=== PATIENT | female | born 1995 | race Hispanic/Latino ===

== ENCOUNTER → 2020-05-06 | Outpatient (REF) | payer OTHER | LOC: M SFHCLUC 11:03 | PROVIDERS: ATTEND Physician Assistant | DX: R30.0 Dysuria (principal) ==

== ENCOUNTER → 2020-08-06 | Outpatient (REF) | payer OTHER ==
[2020-08-06 17:50] LABS: BASO # 0.1 10^3/uL (0.0-0.2); BASO % 0.4 % (0.0-1.0); EOS # 0.5 10^3/uL (0.0-0.5); EOS % 3.4 % (0.0-3.0); HEMOGLOBIN 13.7 g/dl (12.0-15.5); LYMPH # 3.3 10^3/uL (1.5-5.0); LYMPH % 24.6 % (24.0-44.0); MEAN CORPUSCULAR HEMOGLOBIN 29.5 pg (27.0-33.0); MEAN CORPUSCULAR HGB CONC 32.6 g/dl (32.0-36.5); MEAN CORPUSCULAR VOLUME 90.5 fl (80.0-96.0); MONO # 0.8 10^3/uL (0.0-0.8); MONO % 5.7 % (0.0-5.0); NEUTROPHILS # 8.7 10^3/uL (1.5-8.5); NEUTROPHILS % 65.4 % (36.0-66.0); PLATELET COUNT, AUTOMATED 340 10^3/uL (150-450); RED BLOOD COUNT 4.64 10^6/uL (4.00-5.40); WHITE BLOOD COUNT 13.3 10^3/uL (4.0-10.0)
[2020-08-06 18:20] LABS: ALBUMIN 3.9 GM/DL (3.2-5.2); ALT/SGPT 47 U/L (12-78); BILIRUBIN,TOTAL 0.2 MG/DL (0.2-1.0); BLOOD UREA NITROGEN 9 MG/DL (7-18); CALCIUM LEVEL 9.3 MG/DL (8.5-10.1); CARBON DIOXIDE LEVEL 29 MEQ/L (21-32); CHLORIDE LEVEL 104 MEQ/L (98-107); CHOLESTEROL LEVEL 168 MG/DL (<200); CHOLESTEROL RISK RATIO 3.574 (<5); CREATININE FOR GFR 0.58 MG/DL (0.55-1.30); FREE T4 0.86 NG/DL (0.76-1.46); GLOMERULAR FILTRATION RATE > 60.0 (>60); GLUCOSE, FASTING 89 MG/DL (70-100); HCG, SERUM QUANTITATIVE 79531 MIU/ML; HDL CHOLESTEROL 47 MG/DL (>40); LDL CHOLESTEROL 67 MG/DL (<100); NON-HDL-C 121 MG/DL; POTASSIUM SERUM 4.8 MEQ/L (3.5-5.1); SODIUM LEVEL 136 MEQ/L (136-145); TOTAL PROTEIN 7.8 GM/DL (6.4-8.2); TRIGLYCERIDES LEVEL 272 MG/DL (<150)
== END ==
LOC: M SFHCPLAZ 14:24
PROVIDERS: ATTEND Nurse Practitioner Family
DX: Z13.228 Encounter for screening for other metabolic disorders (principal); Z13.220 Encounter for screening for lipoid disorders
CPT/HCPCS: 36415; 80053; 80061; 84439; 84443; 84702; 85025; G0463

== ENCOUNTER 2020-09-15 16:28 | Emergency (ER) | payer OTHER ==
[~2020-09-15] VITALS: Ht 154.9 cm; Wt 71.4 kg
[2020-09-15] MEDS ORDERED: GNP28TAB2 PO (16:47)
[2020-09-15 20:10] LABS: BASO % 0.3 % (0.0-1.0); EOS # 0.4 10^3/uL (0.0-0.5); EOS % 3.6 % (0.0-3.0); HEMATOCRIT 39.8 % (36.0-47.0); LYMPH % 28.7 % (24.0-44.0); MEAN CORPUSCULAR HEMOGLOBIN 29.4 pg (27.0-33.0); MEAN CORPUSCULAR HGB CONC 32.7 g/dl (32.0-36.5); MONO # 0.5 10^3/uL (0.0-0.8); MONO % 4.7 % (0.0-5.0); NEUTROPHILS # 6.6 10^3/uL (1.5-8.5); NEUTROPHILS % 62.3 % (36.0-66.0); PLATELET COUNT, AUTOMATED 282 10^3/uL (150-450); RED BLOOD COUNT 4.42 10^6/uL (4.00-5.40); WHITE BLOOD COUNT 10.5 10^3/uL (4.0-10.0)
[2020-09-15 20:21] LABS: AMORPHOUS SEDIMENT SMALL (NEGATIVE); APPEARANCE, URINE CLOUDY (CLEAR); BACTERIA, URINE AUTO 1+ (NEGATIVE); BILIRUBIN, URINE AUTO NEGATIVE (NEGATIVE); BLOOD, URINE BLOOD NEGATIVE (NEGATIVE); COLOR, URINE YELLOW (YELLOW); GLUCOSE, URINE (UA) AUTO NEGATIVE (NEGATIVE); KETONE, URINE AUTO NEGATIVE (NEGATIVE); LEUKOCYTE ESTERASE, URINE AUTO 1+ (NEGATIVE); MUCUS, URINE LARGE (NEGATIVE); NITRITE, URINE AUTO NEGATIVE (NEGATIVE); PROTEIN, URINE AUTO NEGATIVE (NEGATIVE); RBC, URINE AUTO 2 /HPF (0-3); SPECIFIC GRAVITY URINE AUTO 1.018 (1.002-1.035); SQUAMOUS EPITHELIAL CELL UR AU 10 /HPF (0-6); UROBILINOGEN, URINE AUTO 0.2 mg/dL (0.0-2.0); WBC, URINE AUTO 3 /HPF (0-3)
--- NOTE | 2020-09-15 20:31 | REPVR ---
PROCEDURE INFORMATION: Exam: US First Trimester, Transabdominal Exam date and time: 09/15/2020 8:07 PM Age: 25 years old Clinical indication: Pain; Other: Lt adnexa; Gestational age or lmp: 13; ; Additional info: No audible heart tones TECHNIQUE: Imaging protocol: Real-time transabdominal obstetrical ultrasound of the maternal pelvis and a first trimester , less than 14 weeks 0 days, with image documentation. COMPARISON: No relevant prior studies available. FINDINGS: Gestation: Single living fetus. Embryonic/ heart rate: heart rate 165 bpm. Presentation: Fetus in breech position. Placenta: Anterior placenta, grade 0. No placenta previa. Amniotic fluid: Amniotic fluid is normal for gestational age. BIOMETRY: Gestational age (AUA): Gestational age based on average ultrasound measurements is 14 weeks 2 days. XIOMY 03/14/2021. Estimated weight: Estimated weight at this early age is 96 g. Biparietal diameter: BPD 2.5 cm Head circumference: Head circumference 9.3 cm Abdominal circumference: Abdominal circumference 8.3 cm Femur length: Femur length 1.4 cm MATERNAL: Uterus: Unremarkable. Cervix: Unremarkable. Right adnexa: Unremarkable. Left adnexa: Unremarkable. Intraperitoneal space: No intraperitoneal free fluid. IMPRESSION: Unremarkable scan at 14 weeks 2 days. Detailed structural survey can be performed between 19-20 weeks if clinically desired. Electronically signed by: Otto Coelho On 09/15/2020 20:31:47 PM
[2020-09-15 20:43] VITALS: BP 106/58
== END 2020-09-15 20:45 | disposition home or self-care (01) ==
LOC: M ED 16:28
DX: O36.8390 Maternal care for abnormalities of the fetal heart rate or rhythm, unspecified trimester, not applicable or unspecified (principal); Z3A.14 14 weeks gestation of pregnancy

== ENCOUNTER → 2020-10-01 | Outpatient (REF) | payer OTHER ==
[~2020-10-01] MED LIST: GNP28TAB2 PO
[2020-10-01 14:13] LABS: HEMATOCRIT 39.9 % (36.0-47.0); HEMOGLOBIN 13.1 g/dl (12.0-15.5); MEAN CORPUSCULAR HEMOGLOBIN 30.3 pg (27.0-33.0); MEAN CORPUSCULAR HGB CONC 32.8 g/dl (32.0-36.5); MEAN CORPUSCULAR VOLUME 92.1 fl (80.0-96.0); PLATELET COUNT, AUTOMATED 288 10^3/uL (150-450); RED BLOOD COUNT 4.33 10^6/uL (4.00-5.40); WHITE BLOOD COUNT 10.8 10^3/uL (4.0-10.0)
[2020-10-01 15:43] LABS: HEPATITIS C VIRUS ABY INDEX 0.1 INDEX (<0.8); HIV 1&2 SCREEN CENTAUR NEGATIVE (NEGATIVE)
[2020-10-01 15:55] LABS: CHLAMYDIA DNA AMPLIFICATION NEGATIVE (NEGATIVE); GC DNA AMPLIFICATION NEGATIVE (NEGATIVE)
== END ==
LOC: M PLALAB 11:02
PROVIDERS: ATTEND Specialist
DX: Z34.01 Encounter for supervision of normal first pregnancy, first trimester (principal)

== ENCOUNTER → 2020-10-30 | Outpatient (CLI) | payer OTHER ==
--- NOTE | 2020-10-31 04:02 | REP ---
INDICATION: ANATOMY COMPARISON: None. TECHNIQUE: Transabdominal obstetrical ultrasound with color Doppler evaluation. FINDINGS: Examination demonstrates a single live intrauterine in variable presentation. motion is identified by technologist. Placenta is noted anterior and grade 1 without evidence for placenta previa or abruption. Amniotic fluid volume is normal. Cervix measures 3.3 cm in length and appears closed.. Gestational age by LMP 20 weeks 5 days with XIOMY 03/14/2021. Gestational age by current measurements 20 weeks 0 days with XIOMY 03/19/2021. FHR equals 149 beats per minute. BPD: 4.5 cm 19 weeks 5 days HC: 17.1 cm 19 weeks 5 days AC: 13.9 cm 19 weeks 2 days FL: 3.3 cm 20 weeks 3 days HL: 3.2 cm 20 weeks 6 days HC/AC: 1.23 Estimated weight 313 grams (50thpercentile). Anatomical assessment demonstrates normal structures including cranium, choroid plexus, cavum, cerebellum/posterior fossa, facial features, lungs, four-chamber heart/ventricular outflow tracts, diaphragm, stomach, cord insertion/three-vessel cord, kidneys/bladder, and extremities. IMPRESSION: Single live intrauterine in variable presentation demonstrating appropriate interval growth. Limited evaluation of the spine noted. Remainder of the anatomical assessment is complete and normal. <Electronically signed by Amaury Casillas > 10/31/20 [id number]
== END ==
LOC: M WHC 11:08
PROVIDERS: ATTEND Specialist
DX: Z36.3 Encounter for antenatal screening for malformations (principal)
CPT/HCPCS: 76811; G0463

== ENCOUNTER → 2020-12-01 | Outpatient (REF) | payer OTHER | LOC: M PLALAB 14:25 | PROVIDERS: ATTEND Obstetrics & Gynecology | DX: Z3A.24 24 weeks gestation of pregnancy (principal) ==

== ENCOUNTER → 2020-12-10 | Outpatient (CLI) | payer OTHER ==
--- NOTE | 2020-12-10 07:53 | REP ---
INDICATION: F/U ANATOMY. COMPARISON: 10/30/2020 TECHNIQUE: Multiple sonographic images of the gravid uterus. FINDINGS: On the comparison study the spine was suboptimally demonstrated. The remainder of the anatomy is adequately demonstrated and unremarkable. On the study today the spine is adequately demonstrated and unremarkable. There is a single intrauterine gestation in a cephalic presentation. The placenta is anterior with grade 1 maturity. There is no previa. The umbilical cord inserts centrally on to the placenta. There is a three-vessel cord. The cervix measures 3.2 cm. heart rate is 140 beats per minute. Subjectively the amniotic fluid volume is normal. The composite ultrasound gestational age by the study today is 26 weeks 2 days with an XIOMY of 03/16/2021. Gestational age by the 1st ultrasound is 26 weeks 4 days with an XIOMY of 03/14/2021. weight is 913 g/2 lb, 0 oz. This is the 69th percentile for 25 weeks 1 day. IMPRESSION: The spine is adequately demonstrated and unremarkable. The remainder of the anatomy was adequately demonstrated previously and unremarkable. No anomalies are identified. <Electronically signed by Shelton Winter > 12/10/20 [id number]
== END ==
LOC: M WHC 06:52
PROVIDERS: ATTEND Obstetrics & Gynecology
DX: Z36.2 Encounter for other antenatal screening follow-up (principal); Z3A.24 24 weeks gestation of pregnancy

== ENCOUNTER → 2020-12-16 | Outpatient (REF) | payer OTHER ==
[2020-12-16 14:45] LABS: HEMOGLOBIN 12.2 g/dl (12.0-15.5); MEAN CORPUSCULAR HEMOGLOBIN 28.6 pg (27.0-33.0); MEAN CORPUSCULAR HGB CONC 31.3 g/dl (32.0-36.5); MEAN CORPUSCULAR VOLUME 91.5 fl (80.0-96.0); PLATELET COUNT, AUTOMATED 280 10^3/uL (150-450); RED BLOOD COUNT 4.26 10^6/uL (4.00-5.40); WHITE BLOOD COUNT 11.2 10^3/uL (4.0-10.0)
== END ==
LOC: M PLALAB 08:57
PROVIDERS: ATTEND Obstetrics & Gynecology
DX: Z36.89 Encounter for other specified antenatal screening (principal); Z3A.24 24 weeks gestation of pregnancy

== ENCOUNTER → 2021-02-27 | Outpatient (REF) | payer OTHER | LOC: M SFHCWAGY 12:46 | PROVIDERS: ATTEND Obstetrics & Gynecology | DX: Z36.89 Encounter for other specified antenatal screening (principal); Z3A.36 36 weeks gestation of pregnancy ==

== ENCOUNTER 2021-03-09 23:41 | Inpatient (IN) | payer OTHER ==
[~2021-03-09] VITALS: Ht 154.9 cm; Wt 92.5 kg
[2021-03-10] VITALS (64 sets, daily range): BP systolic 99–131; BP diastolic 53–88
[2021-03-10 02:38] LABS: HEMATOCRIT 35.4 % (36.0-47.0); HEMOGLOBIN 11.1 g/dl (12.0-15.5); MEAN CORPUSCULAR HEMOGLOBIN 25.7 pg (27.0-33.0); MEAN CORPUSCULAR HGB CONC 31.4 g/dl (32.0-36.5); MEAN CORPUSCULAR VOLUME 81.9 fl (80.0-96.0); PLATELET COUNT, AUTOMATED 252 10^3/uL (150-450); RED BLOOD COUNT 4.32 10^6/uL (4.00-5.40); WHITE BLOOD COUNT 10.6 10^3/uL (4.0-10.0)
[2021-03-10] MEDS ORDERED: FENTANYL 2MCG/ML ROPIVACAINE 0.2% IN 0.9% NACL 100ML IVBAG As Ordered ONE (03:31)
[2021-03-10] MEDS ORDERED: LACTATED RINGER'S 1000 ML IV PRN (04:10)
[2021-03-10] MEDS ORDERED: ePHEDrine SULFATE 25 MG/5 ML(5MG/ML) SYRINGE IV PRN (04:10)
[2021-03-10] MEDS ORDERED: ONDANSETRON 4MG/2ML VIAL IV PRN (04:10)
[2021-03-10] MEDS ORDERED: diphenhydrAMINE 50MG/ML VIAL (J1200) IV PRN (04:10)
[2021-03-10] MEDS ORDERED: NALOXONE INJ 0.4MG/1ML VIAL (J2310 PER 1MG) IV PRN (04:10)
[2021-03-10] MEDS ORDERED: FENTANYL/ROPIVACAINE/NACL BAG 100 ML EPIDURAL SCH (04:10)
[2021-03-10] MEDS ORDERED: REFRIGERATOR IV KEYS XX PRN (04:10)
[2021-03-10] MEDS ORDERED: EPIDURAL/PCA KEYS XX PRN (04:10)
[2021-03-10] MEDS ORDERED: EPIDURAL COMMENT XX SCH (04:10)
[2021-03-10] MEDS ORDERED: OXYTOCIN DRIP 30 UNITS in IV 1 EA IV PRN (04:50)
[2021-03-10] MEDS ORDERED: LR 1,000 ML IV SCH (04:50)
[2021-03-10] MEDS ORDERED: TRANEXAMIC ACID INJection 1,000 MG in NS 100 ML IV PRN (04:50)
[2021-03-10] MEDS ORDERED: LIDOCAINE 1% MDV 20ML VIAL INFIL PRN (04:50)
[2021-03-10] MEDS ORDERED: LACTATED RINGER'S 1000 ML IV STA (04:50)
[2021-03-10] MEDS ORDERED: METHYLERGONOVINE MALEATE 0.2 MG/ML VIAL (J2210) IM PRN (04:50)
[2021-03-10] MEDS ORDERED: CARBOPROST TROMETHAMINE 250 MCG/ML AMP IM PRN (04:50)
--- NOTE | 2021-03-10 05:44 | HPEPDOC ---
Obstetrical History & Physical General Date of Admission Mar 10, 2021 at 02:08 Primary Care Physician: HYUN AMBROSE CNM History of Present Illness Mixtly is a 26-year-old female who is a at 38.3 weeks gestation with an XIOMY of 03/21/21 based off of her LMP and consistent with her second trimester ul trasound. Her has been uncomplicated. She presents to L&D with complaints of contractions and pelvic pressure. Reports her contractions are every 3-4 minutes. She reports active movement. She denies leaking of fluid or vaginal bleeding. Chief Complaint: Active Labor Information Provided By: Patient Age: 26 : 4 Term: 2 Pre-term: 0 Abortions: 1 Livin Care Care: Good Care Dating Final EDC: Mar 21, 2021 Final EDC by: LMP EGA at Admission: 38.3 Antepartum Course Height (inches): 61 Admission Weight (lbs.): 203 Past Medical History Past Obstetrical History #1: Past Obstetrical History: Primgravida Date of Delivery: Oct 20, 2017 Type of Delivery: Spontaneous Vaginal Del. Sex of : Male (8 lbs 3 oz) Complications: No Past Obstetrical History #2: Past Obstetrical History: Multigravida Date of Delivery: Dec 27, 2018 Type of Delivery: Spontaneous Vaginal Del. Sex of : Male (7 lbs 8 oz) Complications: No [employer] History: Theraputic , History of STD Past Medical History Medical History asthma Surgical History: Dilatation and Curettage, Tonsilectomy Family History Significant Family History: Diabetes Social History Marital Status: Family situation: Spouse/partner home Psychosocial History: No pertinent psych hx * Smoker: non-smoker Alcohol: Denies Drugs: denies Abuse Violence Screening Have you been hit/kicked/slapp: No Have you been sexually assault: No Allergies Coded Allergies: No Known Allergies (Unverified , 09/15/20) Medications Scheduled Pnv No.95/Ferrous Fum/Folic AC ( Vitamins Tablet) 1 Each Tablet, 1 TAB PO DAILY Physical Examination Physical Examination GENERAL: Alert and oriented times three. BREAST: . ABDOMEN: Gravid and non-tender to touch. FETUS: Is vertex (VTX) by sterile vaginal examination (SVE), fetus is vertex (VTX) by Cy. LUNGS: Clear to auscultation (CTA). EXTREMITIES: No edema. No clonus. Deep tendon reflexes (DTRs) + 2. Vital Signs/I&O Vital Signs Date Time Temp Pulse Resp B/P (MAP) Pulse Ox O2 Delivery O2 Flow Rate FiO2 03/10/21 02:13 98.3 78 18 119/71 (87) Laboratory Data 24H LABS Laboratory Tests 2 03/10/21 02:15: Serology Scanned Report Hepatitis B Testing 03/10/21 02:22: Nucleated Red Blood Cells % (auto) 0.0 CBC/BMP Laboratory Tests 03/10/21 02:22 Urine Culture: No Growth Pertinent Laboratoy Data Blood Type: O+ RBC Antibody Screen: Negative HIV: Negative Hepatitis B: Negative Hepatitis C: Negative Rapid Plasma Reagin: Nonreactive Rubella: Immune Chlamydia/Gonorrhea: Negative Group B Streptococcus: Negative Glucose Tolerance Test: 106 Vaginal Examination Dilation: 4 cm Effacement: 80% Station: -2 Cervical Consistency: Soft Cervical Position: Anterior Presentation: Cephalic presentation Position: Vertex (occiput) Assessment Heart Rate (FHR): 120 Variability: Moderate Accelerations: Positive Decelerations: None Tocometer Contractions: Yes Frequency: regular Multi-drug resistant Organism: No history of MDRO Assessment/Plan Assessment IUP at 38.3 weeks gestation GBS negative Category I FHR tracing Active labor Plan Admit to L&D. OOB ad maria antonia Diet: clears. Group B Streptococcus (GBS) negative. Labs and intravenous (IV) per unit protocol. Anesthesia consult per patient's request. Lactated Ringers (LR): Bolus 800 mL prior to epidural then at 125 mL/hr. Anticipate normal spontaneous delivery (). C-S as appropriate. HYUN AMBROSE CNM Mar 10, 2021 05:44
[2021-03-10] MEDS ORDERED: OXYTOCIN DRIP 30 UNITS in IV 1 EA IV SCH (08:10)
--- NOTE | 2021-03-10 08:14 | IPNPDOC ---
Obstetrical Progress Note Date of Service Mar 10, 2021 Subjective Patient reports she is comfortable with her epidural. Objective Vital Signs Date Time Temp Pulse Resp B/P (MAP) Pulse Ox O2 Delivery O2 Flow Rate FiO2 03/10/21 04:13 81 123/58 (79) 03/10/21 02:13 98.3 18 Assessment Heart Rate (FHR): 125 Variability: Moderate Accelerations: Positive Decelerations: None Heart Rate Tracing: Category I Tocometer Contractions: Yes Frequency: regular Sterile Vaginal Examination Dilation: 7 cm Effacement (%): 80% Station: -2 Cervical Consistency: Soft Postion/Presentation: Cephalic presentation Assessment and Plan EGA at Admission: 38.3 Status: Reassuring Group B Streptococcus: Negative Anticipate: Vaginal Delivery Additional Comments AROM to scant amount of clear fluid. IV Pitocin ordered to help with contractions. HYUN AMBROSE CNM Mar 10, 2021 08:14
[2021-03-10] MEDS: PRENATAL VITAMINS CHEWABLE TABLET PO SCH (09:00)
[2021-03-10] MEDS: DOCUSATE SODIUM 100MG CAPSULE PO SCH ×2 (09:00→19:30)
[2021-03-10] MEDS ORDERED: IBUPROFEN 600MG TAB PO PRN (10:05)
[2021-03-10] MEDS ORDERED: IBUPROFEN 800 MG TAB PO PRN (10:05)
[2021-03-10] MEDS ORDERED: MEASLES,MUMPS,RUBELLA VACCINE INJ (MMR-II) (90707) SC SCH (10:05)
[2021-03-10] MEDS ORDERED: RHOGAM 300 MCG (1500 IU) INJ (J2790) IM SCH (10:05)
[2021-03-10] MEDS ORDERED: ACETAMINOPHEN TAB 650MG DOSE (2X325MG) PO PRN (10:05)
--- NOTE | 2021-03-10 10:09 | DNPDOC ---
[facility] Delivery Note Delivery Note DATE OF DELIVERY: 03/10/2021 PREDELIVERY DIAGNOSIS: 38w3d gestation and labor. POST DELIVERY DIAGNOSIS: Delivered. PROCEDURE: Spontaneous vaginal delivery BLOCK PAVER: Dr. Norma Jacobs MD ANESTHESIA: epidural ESTIMATED BLOOD LOSS: 200 mL. FINDINGS: 7 pound 11 ounce (3490g) male , Score 9/10 DELIVERY SUMMARY: Katerin is a 26yo [id number] s/p uncomplicated at 38w3d, delivering at 0940 on 03/10/21. She received an epidural and progressed with pitocin augmentation after clear AROM to C/C/-2 at which point she began pushing. With good maternal effort, infant's head delivered OA, restituted EPI. Right anterior shoulder delivered followed by posterior shoulder and corpus and there was a compound left hand. was vigorous with spontaneous cry, placed on maternal abdomen, apgars 9/10, nose and mouth were suctioned. After approximately 2 minutes, cord was clamped x2 and cut by FOB. Fundal massage was performed and traction was placed on the umbilical cord, placenta delivered spontaneously and intact with 3 vessel centrally inserted cord noted. At that point, IV pitocin was bolused per protocol. Uterine massage performed and fundus then firm at u-2cm with no further bleeding. Inspection of perineum and vagina revealed no lacerations and total hemostasis was noted. All counts were correct x2. Mom and baby were doing well when I left the room. MD Reynaldo Roper Katrina D MD Mar 10, 2021 10:09
[2021-03-10] MEDS: ACETAMINOPHEN 500 MG TAB PO PRN (19:31)
[2021-03-11] MEDS: ACETAMINOPHEN 500 MG TAB PO PRN ×2 (01:28→10:00)
[2021-03-11 06:00] VITALS: BP 121/67
--- NOTE | 2021-03-11 06:44 | IPNPDOC ---
Progress Note Date of Service: Mar 11, 2021 Day#: 1 Progress Note PPD 1 SUBJECT: Katerin is a 26yo [id number] s/p uncomplicated at 38w3d, delivering at 0940 on 03/10/21, doing well day # 1. She has been ambulating, voiding spontaneously without issue and tolerating regular diet. Breast feeding without issue. Reports lochia is like a normal period. No f/c/n/v/CP/SOB. OBJECTIVE: VITAL SIGNS: Within normal limits, afebrile. Alert and oriented times three. Abdomen: Fundus firm at U-2. Soft, NTTP. Extremities: no pain with palpation of calves ASSESSMENT: Katerin is a 26yo [id number] s/p uncomplicated at 38w3d, delivering at 0940 on 03/10/21, doing well day # 1. Vitals within normal limits, afebrile, hemodynamically stable with no evidence of infection. PLAN: 1. Discharge to home today. 2. Tylenol and Motrin for pain. 3. Encourage breast feeding and ambulation. 4. Planning on vasectomy for contraception 5. Routine PP visit in 6 weeks in clinic. 6. Discussed return precautions at length. Norma Jacobs MD VS, I&O, 24H, Fishbone Vital Signs/I&O Vital Signs Date Time Temp Pulse Resp B/P (MAP) Pulse Ox O2 Delivery O2 Flow Rate FiO2 03/10/21 17:50 97.6 62 16 112/54 (73) 100 Room Air I&O- Last 24 Hours up to 6 AM 03/11/21 05:59 Intake Total 1650 ml Output Total 2050 ml Balance -400 ml Norma Jacobs MD Mar 11, 2021 06:44
[2021-03-11] MEDS ORDERED: DOK1CAP7 PO (06:46)
[2021-03-11] MEDS ORDERED: IBUP80TA PO (06:46)
[2021-03-11] MEDS ORDERED: ACET-683 PO (06:46)
--- NOTE | 2021-03-11 06:50 | DS.PDOC ---
Discharge Summary General Date of Admission Mar 10, 2021 at 02:08 Date of Discharge Mar 11, 2021 Discharge Summary PROCEDURES PERFORMED DURING STAY: spontaneous vaginal delivery ADMITTING DIAGNOSES: 1. Term SIUP in active labor DISCHARGE DIAGNOSES: 1. Term SIUP in active labor, delivered COMPLICATIONS/CHIEF COMPLAINT: LABOR. HISTORY OF PRESENT ILLNESS/HOSPITAL COURSE: Katerin is a 26yo [id number] s/p uncomplicated at 38w3d, delivering at 0940 on 03/10/21, doing well day # 1. She had a benign course. At time of discharge, vitals were within normal limits, afebrile, hemodynamically stable with no evidence of infection. DISCHARGE MEDICATIONS: Please see below. ALLERGIES: Please see below. PHYSICAL EXAMINATION ON DISCHARGE: VITAL SIGNS: Within normal limits, afebrile. Alert and oriented times three. Abdomen: Fundus firm at U-2. Soft, NTTP. Extremities: no pain with palpation of calves LABORATORY DATA: Please see below. DISCHARGE PLAN/INSTRUCTIONS: 1. Discharge to home today. 2. Tylenol and Motrin for pain. 3. Encourage breast feeding and ambulation. 4. Planning on vasectomy for contraception 5. Routine PP visit in 6 weeks in clinic. 6. Discussed return precautions at length. DISCHARGE CONDITION: Stable TIME SPENT ON DISCHARGE: Greater than 20 minutes. Vital Signs/I&Os Vital Signs Date Time Temp Pulse Resp B/P (MAP) Pulse Ox O2 Delivery O2 Flow Rate FiO2 03/10/21 17:50 97.6 62 16 112/54 (73) 100 Room Air I&O- Last 24 Hours up to 6 AM 03/11/21 05:59 Intake Total 1650 ml Output Total 2050 ml Balance -400 ml Discharge Medications Scheduled Docusate Sodium (Dok) 100 Mg Capsule, 100 MG PO BID Pnv No.95/Ferrous Fum/Folic AC ( Vitamins Tablet) 1 Each Tablet, 1 TAB PO DAILY, (Reported) Scheduled PRN Acetaminophen (Acetaminophen) 500 Mg Tablet, 1,000 MG PO Q6HP PRN for PAIN LEVEL 6-10 Ibuprofen (Ibuprofen) 800 Mg Tablet, 800 MG PO Q8HP PRN for PAIN LEVEL 6-10 Allergies Coded Allergies: No Known Allergies (Unverified , 09/15/20) Norma Jacobs MD Mar 11, 2021 06:49
[2021-03-11] MEDS: DOCUSATE SODIUM 100MG CAPSULE PO SCH (08:13)
[2021-03-11] MEDS: PRENATAL VITAMINS CHEWABLE TABLET PO SCH (08:14)
== END 2021-03-11 13:45 | disposition home or self-care (01) | DRG 807 ==
LOC: M LDO 23:41 → M LDI 03-10 02:08 → M OBS 03-10 11:56
PROVIDERS: ADMIT Advanced Practice Midwife; ATTEND Obstetrics & Gynecology
PROC: 10E0XZZ Delivery of Products of Conception, External Approach (ICD-10-PCS; principal; 2021-03-10)
PROC: 10907ZC Drainage of Amniotic Fluid, Therapeutic from Products of Conception, Via Natural or Artificial Opening (ICD-10-PCS; 2021-03-10)
DX: O64.5XX0 Obstructed labor due to compound presentation, not applicable or unspecified (principal); Z37.0 Single live birth; Z3A.38 38 weeks gestation of pregnancy